=== PATIENT | male | born 1960 | race African-American/Black ===

== ENCOUNTER 2022-11-25 18:05 | Emergency (ER) | payer OTHER ==
[~2022-11-25] VITALS: Ht 180.3 cm; Wt 90.0 kg
[2022-11-25] MEDS ORDERED: CETI-450 PO (18:11)
[2022-11-25] MEDS ORDERED: GLYB-145 PO (18:11)
[2022-11-25] MEDS ORDERED: DAPA10TA PO (18:11)
[2022-11-25] MEDS ORDERED: METF-1211 PO (18:11)
[2022-11-25 18:26] LABS: GLUCOMETER DEV NAME(LOC) ERT.5; GLUCOSE,POINT OF CARE 247 MG/DL (70-110)
[2022-11-25 19:35] LABS: BASOPHILS % (AUTO) 0.3 % (0.0-2.0); HEMATOCRIT 42.8 % (41-53); HEMOGLOBIN 14.4 g/dL (13.5-17.5); LYMPHOCYTES # (AUTO) 1.6 K/uL (1.0-4.8); LYMPHOCYTES % (AUTO) 18.6 % (22.0-44.0); MEAN CORPUSCULAR HEMOGLOBIN 30.2 pg (26.0-34.0); MEAN CORPUSCULAR HGB CONC 33.6 G/dL (31.0-37.0); MEAN CORPUSCULAR VOLUME 90 fL (80-100); MONOCYTES # (AUTO) 0.6 K/uL (0.1-1.0); MONOCYTES % (AUTO) 6.5 % (2.0-9.0); NEUTROPHILS # (AUTO) 6.5 K/uL (1.8-7.7); NEUTROPHILS % (AUTO) 73.6 % (40.0-70.0); PLATELET COUNT (AUTO) 255 K/uL (150-450); RED BLOOD CELL COUNT(AUTO) 4.76 MIL/uL (4.50-5.90); RED CELL DISTRIBUTION WIDTH 14.1 % (11.5-14.5)
[2022-11-25 19:48] LABS: ANION GAP 4 mmol/L (8-16); CALCIUM, TOTAL 8.4 mg/dL (8.8-10.5); CARBON DIOXIDE 28 mmol/L (22-29); CHLORIDE 103 mmol/L (98-107); CREATININE 1.07 mg/dL (0.60-1.30); GLOMERULAR FILTR. RATE CALC > 60 mL/min (>60); GLUCOSE,RANDOM 270 mg/dL (70-110); POTASSIUM 4.1 mmol/L (3.5-5.1); SODIUM SERUM 135 mmol/L (136-145)
[2022-11-25 19:53] LABS: ALBUMIN 3.7 g/dL (3.4-5.0); ALKALINE PHOSPHATASE 67 U/L (46-116); BILIRUBIN,TOTAL 0.3 mg/dL (0.1-1.0); PHOSPHORUS 4.5 mg/dL (2.5-4.9); TOTAL PROTEIN, SERUM 7.3 g/dL (6.4-8.2)
[2022-11-25 20:15] LABS: ALANINE AMINOTRANSFERASE 28 U/L (12-78); ASPARTATE AMINOTRANSFERASE 24 U/L (15-37)
[2022-11-25] MEDS: LIDOCAINE 5% TRANSDERMAL PATCH TD ONE (21:23)
[2022-11-25] MEDS: ACETAMINOPHEN 325 MG TABLET PO ONE (21:23)
[2022-11-25] MEDS ORDERED: LIDO1ADH83 TP (22:40)
[2022-11-25 22:46] VITALS: BP 125/70
== END 2022-11-25 22:45 | disposition home or self-care (01) ==
LOC: EMS 18:08
DX: R55 Syncope and collapse (principal); E11.9 Type 2 diabetes mellitus without complications
CPT/HCPCS: 71101; 80053; 82962; 83735; 84100; 84484; 85025; 93005; 99285